=== PATIENT | female | born 1980 | race Caucasian/White ===

== ENCOUNTER 2017-05-27 11:03 | Emergency (ER) | payer OTHER ==
[~2017-05-27] VITALS: Ht 160 cm; Wt 53.0 kg
[2017-05-27 11:05] VITALS: BP 119/68; PULSE 86; RESP 16; TEMP 98.1; O2SAT 100
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
[2017-05-27] MEDS ORDERED: KETOROLAC TROMETHAMINE 60 MG/2 ML (IM) VIAL IM ONE (13:00)
[2017-05-27] MEDS ORDERED: PRED10 PO (13:07)
[2017-05-27] MEDS ORDERED: CEPH-460 PO (13:07)
[2017-05-27] MEDS ORDERED: ULTR50TA5 PO (13:09)
== END 2017-05-27 13:30 | disposition home or self-care (01) ==
LOC: PHED 11:03
DX: S92.254A Nondisplaced fracture of navicular [scaphoid] of right foot, initial encounter for closed fracture (principal); L23.7 Allergic contact dermatitis due to plants, except food
CPT/HCPCS: 29515; 73630; 96372; 99284; E0113; J1885; 28470

== ENCOUNTER 2017-06-06 11:31 | Emergency (ER) | payer SELFPAY ==
[~2017-06-06] VITALS: Ht 162.6 cm; Wt 70.0 kg
[~2017-06-06 11:31] MED LIST: CEPH-460 PO; PRED10 PO; ULTR50TA5 PO
[2017-06-06 11:33] VITALS: BP 173/79; PULSE 73; RESP 15; TEMP 98.4; O2SAT 98
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
== END 2017-06-06 12:00 | disposition left against medical advice (07) ==
LOC: NEPK 11:31
DX: S92.254S Nondisplaced fracture of navicular [scaphoid] of right foot, sequela (principal)
CPT/HCPCS: 99281

== ENCOUNTER 2017-07-15 08:55 | Emergency (ER) | payer SELFPAY ==
[~2017-07-15] VITALS: Ht 157.5 cm; Wt 56.7 kg
[2017-07-15 09:01] VITALS: BP 115/78; PULSE 106; RESP 16; TEMP 99.8; O2SAT 99
[2017-07-15] MEDS ORDERED: SODIUM CHLOR 0.9% 1000 ML INJ 1,000 ML IV SCH (09:38)
[2017-07-15 09:43] VITALS: RESP 16; O2SAT 99
[2017-07-15] MEDS ORDERED: KETOROLAC TROMETHAMINE 30 MG/ML (IVP) VIAL IVP ONE (09:45)
[2017-07-15] MEDS ORDERED: MORPHINE SULFATE 4 MG/ML INJ IV PUSH ONE ×2 (09:45→11:15)
[2017-07-15] MEDS ORDERED: ONDANSETRON HCL 4 MG/2 ML VIAL IVP ONE (09:45)
[2017-07-15] MEDS ORDERED: SODIUM CHLORIDE 0.9% FLUSH 10 ML FLUSH IV FLUSH PRN (09:45)
--- NOTE | 2017-07-15 09:57 | PD ---
HPI Chief Complaint: Flank/Kidney Pain Time Seen by Provider: 09:33 Travel History International Travel<30 days: No Contact w/Intl Traveler<30days: No Traveled to known affect area: No History of Present Illness HPI The patient is a 37-year-old female who presents to the emergency department for left flank pain. The patient notes suprapubic pain that started 4-5 days ago, now notes dysuria for the last 48 hours. The pain is now radiating to the left flank and the left lower back. The pain is moderate without any alleviating or exacerbating factors. She does note mild dysuria but denies any urgency, frequency, or hematuria. She denies any unusual vaginal discharge, states her last menstrual cycle was July 19, 2017, denies . The patient does have a history of tubal ligation and cholecystectomy. She denies any vaginal discharge or malodorous discharge. She does note subjective chills without any fever or sweats. Symptoms are moderate without any alleviating or exacerbating factors. PFSH Past Medical History Medical History: Denies Significant Hx Diminished Hearing: No Influenza Vaccination: No ?: Not LMP: 06/26/17 Tubal Ligation: Yes Past Surgical History Cholecystectomy: Yes Social History Alcohol Use: No Tobacco Use: No Substance Use: No Allergies-Medications (Allergen,Severity, Reaction): Coded Allergies: No Known Allergies (Unverified , 07/15/17) Reported Meds & Prescriptions Reported Meds & Active Scripts Active Review of Systems Except as stated in HPI: all other systems reviewed are Neg General / Constitutional: Positive: Chills, No: Fever Cardiovascular: No: Chest Pain or Discomfort Respiratory: No: Shortness of Breath Gastrointestinal: Positive: Nausea, Abdominal Pain, No: Vomiting, Diarrhea Genitourinary: Positive: Dysuria, Pelvic Pain, No: Discharge, Vaginal Bleeding Skin: No Rash Physical Exam Narrative GENERAL: Awake, alert, pleasant 37-year-old female who appears her stated age and is in no acute respiratory distress. SKIN: Focused skin assessment warm and slightly diaphoretic over the forehead. HEAD: Atraumatic. Normocephalic. EYES: Pupils equal and round. No scleral icterus. No injection or drainage. ENT: No nasal bleeding or discharge. Mucous membranes pink and moist. NECK: Trachea midline. No JVD. CARDIOVASCULAR: Regular rate and rhythm. No murmur appreciated. RESPIRATORY: No accessory muscle use. Clear to auscultation. Breath sounds equal bilaterally. GASTROINTESTINAL: Abdomen soft, tender palpation of the suprapubic and left lower quadrant. Back: Positive left CVA tenderness. MUSCULOSKELETAL: No obvious deformities. No clubbing. No cyanosis. No edema. NEUROLOGICAL: Awake and alert. No obvious cranial nerve deficits. Motor grossly within normal limits. Normal speech. PSYCHIATRIC: Appropriate mood and affect; insight and judgment normal. Data Data Last Documented VS Vital Signs Date Time Temp Pulse Resp B/P (MAP) Pulse Ox O2 Delivery O2 Flow Rate FiO2 07/15/17 10:07 18 07/15/17 10:03 87 120/60 (80) 99 Room Air 07/15/17 09:01 99.8 Orders Orders Complete Blood Count With Diff (07/15/17 09:38) Comprehensive Metabolic Panel (07/15/17 09:38) Urinalysis - C+S If Indicated (07/15/17 09:38) Iv Access Insert/Monitor (07/15/17 09:38) Ecg Monitoring (07/15/17 09:38) Oximetry (07/15/17 09:38) Morphine Inj (Morphine Inj) (07/15/17 09:45) Ondansetron Inj (Zofran Inj) (07/15/17 09:45) Sodium Chlor 0.9% 1000 Ml Inj (Ns 1000 M (07/15/17 09:38) Sodium Chloride 0.9% Flush (Ns Flush) (07/15/17 09:45) Ketorolac Inj (Toradol Inj) (07/15/17 09:45) Ed Urine Pregnancytest Poc (07/15/17 09:38) Urine Culture (07/15/17 09:45) Ceftriaxone Inj (Rocephin Inj) (07/15/17 10:45) Sodium Chlor 0.9% 1000 Ml Inj (Ns 1000 M (07/15/17 10:45) Labs Laboratory Tests Test 07/15/17 09:45 White Blood Count 15.0 TH/MM3 Red Blood Count 4.49 MIL/MM3 Hemoglobin 13.5 GM/DL Hematocrit 40.5 % Mean Corpuscular Volume 90.1 FL Mean Corpuscular Hemoglobin 30.1 PG Mean Corpuscular Hemoglobin Concent 33.5 % Red Cell Distribution Width 12.0 % Platelet Count 252 TH/MM3 Mean Platelet Volume 9.0 FL Neutrophils (%) (Auto) 79.7 % Lymphocytes (%) (Auto) 12.0 % Monocytes (%) (Auto) 8.0 % Eosinophils (%) (Auto) 0.1 % Basophils (%) (Auto) 0.2 % Neutrophils # (Auto) 12.0 TH/MM3 Lymphocytes # (Auto) 1.8 TH/MM3 Monocytes # (Auto) 1.2 TH/MM3 Eosinophils # (Auto) 0.0 TH/MM3 Basophils # (Auto) 0.0 TH/MM3 CBC Comment DIFF FINAL Differential Comment Urine Collection Type CLEAN CATCH Urine Color YELLOW Urine Turbidity CLOUDY Urine pH 5.5 Urine Specific [place] 1.014 Urine Protein 30 mg/dL Urine Glucose (UA) NEG mg/dL Urine Ketones NEG mg/dL Urine Occult Blood LARGE Urine Nitrite POS Urine Bilirubin NEG Urine Leukocyte Esterase LARGE Urine RBC 0-3 /hpf Urine WBC 25-49 /hpf Urine WBC Clumps MOD Urine Squamous Epithelial Cells 0-5 /hpf Urine Bacteria MOD /hpf Microscopic Urinalysis Comment CULTURE INDICATED Blood Urea Nitrogen 10 MG/DL Creatinine 0.90 MG/DL Random Glucose 128 MG/DL Total Protein 8.6 GM/DL Albumin 4.1 GM/DL Calcium Level 9.6 MG/DL Alkaline Phosphatase 117 U/L Aspartate Amino Transf (AST/SGOT) 15 U/L Alanine Aminotransferase (ALT/SGPT) 33 U/L Total Bilirubin 0.7 MG/DL Sodium Level 132 MEQ/L Potassium Level 3.4 MEQ/L Chloride Level 97 MEQ/L Carbon Dioxide Level 24.0 MEQ/L Anion Gap 11 MEQ/L Estimat Glomerular Filtration Rate 71 ML/MIN [facility] Medical Decision Making Medical Screen Exam Complete: Yes Emergency Medical Condition: Yes Medical Record Reviewed: Yes Interpretation(s) Laboratory Tests Test 07/15/17 09:45 White Blood Count 15.0 TH/MM3 Red Blood Count 4.49 MIL/MM3 Hemoglobin 13.5 GM/DL Hematocrit 40.5 % Mean Corpuscular Volume 90.1 FL Mean Corpuscular Hemoglobin 30.1 PG Mean Corpuscular Hemoglobin Concent 33.5 % Red Cell Distribution Width 12.0 % Platelet Count 252 TH/MM3 Mean Platelet Volume 9.0 FL Neutrophils (%) (Auto) 79.7 % Lymphocytes (%) (Auto) 12.0 % Monocytes (%) (Auto) 8.0 % Eosinophils (%) (Auto) 0.1 % Basophils (%) (Auto) 0.2 % Neutrophils # (Auto) 12.0 TH/MM3 Lymphocytes # (Auto) 1.8 TH/MM3 Monocytes # (Auto) 1.2 TH/MM3 Eosinophils # (Auto) 0.0 TH/MM3 Basophils # (Auto) 0.0 TH/MM3 CBC Comment DIFF FINAL Differential Comment Urine Collection Type CLEAN CATCH Urine Color YELLOW Urine Turbidity CLOUDY Urine pH 5.5 Urine Specific [place] 1.014 Urine Protein 30 mg/dL Urine Glucose (UA) NEG mg/dL Urine Ketones NEG mg/dL Urine Occult Blood LARGE Urine Nitrite POS Urine Bilirubin NEG Urine Leukocyte Esterase LARGE Urine RBC 0-3 /hpf Urine WBC 25-49 /hpf Urine WBC Clumps MOD Urine Squamous Epithelial Cells 0-5 /hpf Urine Bacteria MOD /hpf Microscopic Urinalysis Comment CULTURE INDICATED Blood Urea Nitrogen 10 MG/DL Creatinine 0.90 MG/DL Random Glucose 128 MG/DL Total Protein 8.6 GM/DL Albumin 4.1 GM/DL Calcium Level 9.6 MG/DL Alkaline Phosphatase 117 U/L Aspartate Amino Transf (AST/SGOT) 15 U/L Alanine Aminotransferase (ALT/SGPT) 33 U/L Total Bilirubin 0.7 MG/DL Sodium Level 132 MEQ/L Potassium Level 3.4 MEQ/L Chloride Level 97 MEQ/L Carbon Dioxide Level 24.0 MEQ/L Anion Gap 11 MEQ/L Estimat Glomerular Filtration Rate 71 ML/MIN Differential Diagnosis Differential diagnosis includes pyelonephritis, hydronephrosis, nephrolithiasis , PID, cervicitis, ectopic , diverticulitis, ovarian torsion, tubo- ovarian abscess. Narrative Course IV was established, labs are drawn and sent, and the patient was placed on cardiac telemetry monitoring and continuous pulse oximetry monitoring. UA was sent to lab and bedside UA test was obtained. The patient was administered morphine, Toradol, Zofran, and IV fluids. Bedside UA test was negative. White count is 15, potassium is minimally low at 3.4, sodium is minimally low 132. UA reveals WBCs but nitrites and leukocyte Estrace consistent with infection. The patient's physical examination with UA findings consistent with pyelonephritis. The patient was administered Rocephin 1 g intravenously with the second liter of IV fluids. The patient be discharged home on Cipro twice a day for 10 days as well as Pyridium. She is advised to follow-up with her primary physician and return if symptoms worsen or progress. Diagnosis Primary Impression: Pyelonephritis Patient Instructions: General Instructions Additional Instructions: Medications as directed. Follow-up with your primary physician. Drink plenty fluids to stay hydrated. Return if symptoms worsen or progress. Med/Other Pt SpecificInfo: Prescription(s) given Scripts Phenazopyridine (Pyridium) 100 Mg Tab 100 MG PO Q8H Y for DYSURIA for 2 Days, #6 TAB 0 Refills Prov: Willy Vargas MD 07/15/17 Ciprofloxacin (Cipro) 500 Mg Tab 500 MG PO BID for Infection for 10 Days, #20 TAB 0 Refills Prov: Willy Vargas MD 07/15/17 Disposition: 01 DISCHARGE HOME Condition: Stable Willy Vargas MD Jul 15, 2017 09:56
[2017-07-15 10:03] VITALS: BP 120/60; PULSE 87; RESP 18; O2SAT 99
[2017-07-15 10:07] LABS: BASOPHIL % 0.2 % (0.0-2.0); EOSINOPHIL % 0.1 % (0.0-4.0); HEMATOCRIT 40.5 % (35.0-46.0); HEMO FLAGS DIFF FINAL; LYMPHOCYTE # 1.8 TH/MM3 (1.0-4.8); MEAN CELL VOLUME 90.1 FL (80.0-100.0); MEAN CORPUSCULAR HEMOGLOBIN 30.1 PG (27.0-34.0); MEAN CORPUSCULAR HGB CONC 33.5 % (32.0-36.0); NEUT % 79.7 % (16.0-70.0); PLATELET COUNT 252 TH/MM3 (150-450); RED BLOOD COUNT 4.49 MIL/MM3 (4.00-5.30)
[2017-07-15 10:11] LABS: BLOOD, URINE LARGE (NEG); GLUCOSE,URINE NEG (NEG); KETONE, URINE NEG (NEG); NITRITE,URINE POS (NEG); PH, URINE 5.5 (5.0-8.5)
[2017-07-15 10:16] LABS: METHOD OF COLLECTION CLEAN CATCH; URINE COLOR YELLOW (YELLW/STRAW)
[2017-07-15 10:17] LABS: BACTERIA, URINE MOD /hpf; COMMENT (UR) CULTURE INDICATED; CULTURE IF INDICATED CULTURE INDICATED; RBC, URINE 0-3 /hpf (0-3); SQUAMOUS EPITHELIAL CELL URINE 0-5 /hpf (0-5)
[2017-07-15 10:19] LABS: CHLORIDE 97 MEQ/L (98-107); POTASSIUM 3.4 MEQ/L (3.5-5.1); SODIUM (NA) 132 MEQ/L (136-145)
[2017-07-15 10:22] LABS: ANION GAP 11 MEQ/L (5-15)
[2017-07-15 10:23] LABS: BLOOD UREA NITROGEN 10 MG/DL (7-18)
[2017-07-15 10:25] LABS: ALT (GPT) 33 U/L (10-53); AST (GOT) 15 U/L (15-37); GLOMERULAR FILTRATION RATE 71 ML/MIN (>89)
[2017-07-15 10:27] LABS: TOTAL BILIRUBIN ADULT 0.7 MG/DL (0.2-1.0)
[2017-07-15 10:28] LABS: ALKALINE PHOSPHATASE 117 U/L (45-117)
[2017-07-15] MEDS ORDERED: CIPR-9 PO (10:41)
[2017-07-15] MEDS ORDERED: PHEN0.4T PO (10:41)
[2017-07-15] MEDS ORDERED: SODIUM CHLOR 0.9% 1000 ML INJ 1,000 ML IV ONE (10:45)
[2017-07-15] MEDS ORDERED: cefTRIAXone INJ 1,000 MG in SODIUM CHLORIDE 0.9% INJ 100 ML IV ONE (10:45)
[2017-07-15 11:22] VITALS: BP 100/55; PULSE 80; RESP 16; O2SAT 98
== END 2017-07-15 11:59 | disposition home or self-care (01) ==
LOC: PHED 08:55
DX: N12 Tubulo-interstitial nephritis, not specified as acute or chronic (principal)
CPT/HCPCS: 80053; 81001; 84703; 85025; 87077; 87086; 87186; 96361; 96365; 96375; 99284; J0696; J1885; J2270; J2405; J7030